=== PATIENT | male | born 1970 | race Hispanic/Latino ===

== ENCOUNTER 2023-09-19 20:04 | Emergency (ER) | payer OTHER ==
[~2023-09-19] VITALS: Ht 170.2 cm; Wt 76.7 kg
[2023-09-19] MEDS ORDERED: DIPH,PERTUSS(ACELL),TET VAC/PF 0.5 ML VIAL IM ONE (21:30)
[2023-09-19 22:22] VITALS: BP 118/60; PULSE 78; RESP 18; O2SAT 98
== END 2023-09-19 22:33 | disposition home or self-care (01) ==
LOC: EDH 20:04
DX: S61.111A Laceration without foreign body of right thumb with damage to nail, initial encounter (principal); E11.9 Type 2 diabetes mellitus without complications; X58.XXXA Exposure to other specified factors, initial encounter; Y93.89 Activity, other specified; Y92.89 Other specified places as the place of occurrence of the external cause; Y99.8 Other external cause status
CPT/HCPCS: 90471; 90715